=== PATIENT | male | born 1985 ===

== ENCOUNTER 2023-09-11 07:44 | Day surgery (SDC) | payer BC ==
[2023-09-10 09:53] VITALS: BMI 37.3
[2023-09-11] MEDS: LACTATED RINGERS 1,000 ML IV SCH (08:25)
[2023-09-11] MEDS ORDERED: PROPOFOL 10 MG/ML 20 ML VIAL IV ONE (08:47)
--- NOTE | 2023-09-11 08:50 | P.GSHP ---
History of Present Illness H&P Date: 09/11/23 Chief Complaint: Rectal bleeding This is a 37-year-old male presents today for colonoscopy. Patient initial rectal bleeding. Past Medical History Past Medical History: GERD/Reflux, Hearing Disorder / Deafness, Hypertension, Sleep Apnea/CPAP/BIPAP Additional Past Medical History / Comment(s): Possible hemorrhoids. Hearing loss left ear. No device for Sleep Apnea. History of Any Multi-Drug Resistant Organisms: None Reported Additional Past Surgical History / Comment(s): EGD. Past Anesthesia/Blood Transfusion Reactions: No Reported Reaction Past Psychological History: Anxiety, PTSD Smoking Status: Current every day smoker Past Alcohol Use History: Rare Additional Past Alcohol Use History / Comment(s): Smokes 1/2 or less per day, started at age 19. Past Drug Use History: Marijuana Additional Drug Use History / Comment(s): Vapes Marijuana approximately 2 times a month. - Past Family History Mother Family Medical History: No Reported History Medications and Allergies Home Medications Medication Instructions Recorded Confirmed Type Esomeprazole Magnesium 40 mg PO BID 09/10/23 09/10/23 History Inulin/Chromium Picolinate [Fiber 1 tab PO DAILY 09/10/23 09/10/23 History Gummies Chew] Losartan Potassium 50 mg PO HS 09/10/23 09/10/23 History Trazadone (Unknown Dose) 1 tab PO HS PRN 09/10/23 09/10/23 History buPROPion HCL [Wellbutrin XL] 150 mg PO HS 09/10/23 09/10/23 History Allergies Allergy/AdvReac Type Severity Reaction Status Date / Time cephalexin [From Keflex] Allergy Unknown Verified 09/11/23 08:10 Surgical - Exam Vital Signs Temp Pulse Resp BP Pulse Ox 98.2 F 77 16 148/82 98 09/11/23 08:19 09/11/23 08:19 09/11/23 08:19 09/11/23 08:19 09/11/23 08:19 - General well developed, well nourished, no distress - Eyes PERRL - ENT normal pinna - Neck no masses - Respiratory normal expansion - Cardiovascular Rhythm: regular - Abdomen Abdomen: soft, non tender Assessment and Plan Assessment: Rectal bleeding. We'll perform colonoscopy.
[2023-09-11 09:03] VITALS: RESP 16; TEMP 98.2
--- NOTE | 2023-09-11 09:14 | P.OP ---
Date of Procedure: 09/11/23 Preoperative Diagnosis: Rectal bleeding Postoperative Diagnosis: Internal and external hemorrhoids Procedure(s) Performed: Colonoscopy Anesthesia: MAC Surgeon: Daryl Vela Pathology: none sent Condition: stable Disposition: PACU Description of Procedure: Patient's placed on the endoscopy table in the lateral position. He received IV sedation. Digital rectal exam was performed. This revealed internal and external hemorrhoids. The flexible colonoscope was then placed patient anus passed throughout the entire colon. Ileocecal valve was visualized. The cecum, ascending and transverse colon appeared normal. Descending and sigmoid colon. Back the rectum this appeared normal. Scope was withdrawn from the anus and internal and external hemorrhoids were noted. There is no active bleeding seen. Presumed patient's bleeding from internal and external hemorrhoids.
[2023-09-11 09:39] VITALS: BP 146/90; PULSE 69
== END 2023-09-11 09:33 | disposition home or self-care (01) ==
LOC: ORWHC2ENDO 07:44
PROVIDERS: ATTEND Surgery
DX: K64.8 Other hemorrhoids (principal); K64.4 Residual hemorrhoidal skin tags; K21.9 Gastro-esophageal reflux disease without esophagitis; H91.90 Unspecified hearing loss, unspecified ear; I10 Essential (primary) hypertension; G47.33 Obstructive sleep apnea (adult) (pediatric); F41.9 Anxiety disorder, unspecified; F43.10 Post-traumatic stress disorder, unspecified; F17.210 Nicotine dependence, cigarettes, uncomplicated; F10.90 Alcohol use, unspecified, uncomplicated; F12.90 Cannabis use, unspecified, uncomplicated; Z88.1 Allergy status to other antibiotic agents; Z79.899 Other long term (current) drug therapy
CPT/HCPCS: 45378; J2704

== ENCOUNTER → 2024-06-16 | Outpatient (CLI) | payer BC ==
[2024-06-16 11:03] VITALS: BP 137/86; PULSE 76; RESP 16; TEMP 98.2
--- NOTE | 2024-06-16 11:24 | P.SLEEP ---
History of Present Illness DATE: 06/16/2024 CONSULTATION/NEW PATIENT EVALUATION HISTORY OF PRESENT ILLNESS/SLEEP-WAKE EVALUATION: 38-year-old gentleman had been evaluated in the sleep center for possible obstructive sleep apnea hypopnea syndrome. SLEEP SCHEDULE: Usually sleep schedule from 11 PM to 6 AM on working days and until 67 AM on weekend. FALLING ASLEEP: No problems with falling asleep. DURING SLEEP: Patient sleeps on the side and stomach position. Patient has loud snoring, witnessed episodes of stop breathing during the sleep, multiple awakenings from sleep with nocturia. Positive history of palpitations, heartburn and sweating no history of hypnogogical hallucinations, sleep paralysis, or cataplexy. DURING THE DAY/WAKE STATE: Patient feels significant sleepiness during the day. [place] sleepiness scale is an extremely high range of 20. Patient takes up to 2 naps during the day. PAST MEDICAL HISTORY: Hypertension, acid reflux. PAST SURGICAL HISTORY: Vasectomy. MEDICATIONS: Please see below. SOCIAL HISTORY: Please see below. FAMILY HISTORY: Please see below. REVIEW OF SYSTEMS: Loud snoring, awakenings from sleep, sleepiness during the day. No fevers. No double vision. No recent chest pain. No shortness of breath. No abdominal pain. No bleeding episodes. No blood in urine. No seizure episodes. PHYSICAL EXAMINATION: GENERAL: A pleasant patient without any distress. VITAL SIGNS: Please see below weight 296 pounds, BMI 43.7. HEENT: PERRLA, EOMI. Evaluation of oropharynx showed tongue protrudes midline, low position of soft palate Mallampati 4. NECK: Supple. No JVD. Thyroid is not palpable. 21 inches in circumference. LUNGS: Clear to percussion and to auscultation. Good air exchange. No wheezing or rhonchi. HEART: S1, S2 regular. No murmurs, gallops or rubs. ABDOMEN: Soft and nontender. Bowel sounds are present. No organomegaly appreciated. EXTREMITIES: No clubbing or cyanosis. 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 Cranial nerves 2 to 7 intact. There is no fasciculation or atrophy noted. No focal deficits observed. ASSESSMENT: 1. Loud snoring, witnessed episodes of stop breathing during the sleep, extremely low position of soft palate Mallampati 4, extremely wide neck 21 inches, significant excessive daytime sleepiness with [place] Sleepiness Scale of 20. Obstructive sleep apnea hypopnea syndrome, probably in severe range. 2. Obesity, BMI 43.7. 3. Hypertension. 4. Acid reflux. 5 status post vasectomy. PLAN: 1. Polysomnography for evaluation of patient's breathing during sleep. 2. Following plan after reading sleep study. 3. Preferable position during sleep on the side. 4. No driving if patient feels any sleepiness. Patient is aware of civil and criminal liability for unsafe driving. 5. Sleep hygiene with regular sleep time for at least 7.5-8 hours. 6. Watching and losing weight. Thank you very much for referring this patient for consultation. Sincerely, Zac Sapp MD, PhD, FAASM. Diplomat of [employer], Sleep Medicine Board by [employer] [facility] [place] cc: Demetris Burnette MD Past Medical History Past Medical History: GERD/Reflux, Hearing Disorder / Deafness, Hypertension, Sleep Apnea/CPAP/BIPAP Additional Past Medical History / Comment(s): Possible hemorrhoids. Hearing loss left ear. No device for Sleep Apnea. History of Any Multi-Drug Resistant Organisms: None Reported Additional Past Surgical History / Comment(s): EGD. Vasectomy, colonoscopy Past Anesthesia/Blood Transfusion Reactions: No Reported Reaction Past Psychological History: Anxiety, PTSD Smoking Status: Current every day smoker Past Alcohol Use History: Rare Additional Past Alcohol Use History / Comment(s): Smokes 1/2 or less per day, started at age 19. Past Drug Use History: Marijuana Additional Drug Use History / Comment(s): Vapes Marijuana approximately 2 times a month. - Past Family History Mother Family Medical History: No Reported History, Hypertension Additional Family Medical History / Comment(s): Insomnia Father Family Medical History: GERD/Reflux, Hypertension Additional Family Medical History / Comment(s): snoring Medications and Allergies Home Medications Medication Instructions Recorded Confirmed Type Esomeprazole Magnesium 40 mg PO BID 09/10/23 06/16/24 History Inulin/Chromium Picolinate [Fiber 1 tab PO DAILY 09/10/23 09/10/23 History Gummies Chew] Losartan Potassium 100 mg PO HS 09/10/23 06/16/24 History Trazadone (Unknown Dose) 1 tab PO HS PRN 09/10/23 09/10/23 History Allergies Allergy/AdvReac Type Severity Reaction Status Date / Time cephalexin [From Keflex] Allergy Unknown Verified 09/11/23 08:10 Physical Exam Vitals: Vital Signs Temp Pulse Resp BP Pulse Ox 06/16/24 11:01 98.2 F 76 16 137/86 97 Intake and Output 06/15/24 06/16/24 06/16/24 22:59 06:59 14:59 Other: Weight 134.263 kg Sleep Note - Sleep Data ESS Total: 20 - Sleep Note Sleep Note: Temperature: 98.2 F Pulse Rate: 76 Respiratory Rate: 16 Blood Pressure: 137/86 SpO2: 97 Height: 5 ft 9 in Weight: 134.263 kg BMI: Neck Circumference: 21
== END ==
LOC: 3 N SLEEP 10:46
PROVIDERS: ATTEND Internal Medicine
DX: G47.33 Obstructive sleep apnea (adult) (pediatric) (principal); E66.9 Obesity, unspecified; Z68.41 Body mass index [BMI] 40.0-44.9, adult; I10 Essential (primary) hypertension; K21.9 Gastro-esophageal reflux disease without esophagitis; Z98.890 Other specified postprocedural states; Z88.1 Allergy status to other antibiotic agents
CPT/HCPCS: 99211

== ENCOUNTER → 2024-07-15 | Outpatient (CLI) | payer BC ==
--- NOTE | 2024-07-22 11:13 | P.PCN ---
Description of Procedure: CLINICAL: A home sleep apnea test has been done for confirmation of possible obstructive sleep apnea-hypopnea syndrome. DESCRIPTION OF PROCEDURE: RESULTS: Recording time was 6 hours 24 minutes. Evaluation time was 6 hours 11 minutes. Evaluation time is sufficient for making conclusion about results of the test. Raw data of sleep recording has been reviewed and is adequate. Respiratory channel showed 271 apneas and 193 hypopneas. Apnea-hypopnea index was 74.8 per hour. Pulse rate in the range between minimum 50, maximum 217, average 65 by computer calculation. Lowest desaturation was 71%. IMPRESSION: 1. Extremely Severe Obstructive Sleep Apnea Hypopnea Syndrome. Please see other impressions from consultation. PLAN: 1. The patient should have PAP titration for correction of respiratory abnormallities during sleep. 2. Sleep hygiene with regular time in bed for at least 8 hours. 3. Watching weight. 4. No driving if feeling any sleepiness. Thank you very much for allowing me to participate in the management of your patient. Sincerely, Zac Sapp MD, PhD, FAASM Diplomat of [place] [employer] Sleep Medicine Board of [place] [employer] [facility] [place] cc: Demetris Burnette MD
== END ==
LOC: 3 N SLEEP 17:01
PROVIDERS: ATTEND Internal Medicine
DX: G47.33 Obstructive sleep apnea (adult) (pediatric) (principal); Z88.1 Allergy status to other antibiotic agents